=== PATIENT | male | born 1995 | race Caucasian/White ===

== ENCOUNTER 2018-01-04 01:44 | Emergency (ER) | payer OTHER ==
[~2018-01-04] VITALS: Ht 177.8 cm; Wt 72.6 kg
[2018-01-04 02:03] VITALS: BP 148/88
== END 2018-01-04 07:05 | disposition home or self-care (01) ==
LOC: ER 01:51
DX: J34.89 Other specified disorders of nose and nasal sinuses (principal)
CPT/HCPCS: 70486

== ENCOUNTER 2019-06-14 14:34 | Emergency (ER) | payer MEDICAID, MEDICARE ==
[~2019-06-14] VITALS: Ht 177.8 cm; Wt 77.1 kg
[2019-06-14 15:20] VITALS: BP 131/81
== END 2019-06-14 17:07 | disposition home or self-care (01) ==
LOC: ER 14:34
DX: R06.00 Dyspnea, unspecified (principal)
CPT/HCPCS: 71046